=== PATIENT | male | born 1980 | race Caucasian/White ===

== ENCOUNTER 2024-10-14 23:56 | Inpatient (IN) | payer OTHER ==
[~2024-10-14] VITALS: Ht 180.3 cm; Wt 73.5 kg
[2024-10-15] MEDS ORDERED: ASCO500C18 GT (00:36)
[2024-10-15] MEDS ORDERED: MAGN400O6 GT (00:36)
[2024-10-15] MEDS ORDERED: BISA10SU61 RC (00:36)
[2024-10-15] MEDS ORDERED: NA P133E RC (00:36)
[2024-10-15] MEDS ORDERED: ENOX40DI SQ (00:36)
[2024-10-15] MEDS ORDERED: IPRA0.2S48 NEB (00:36)
[2024-10-15] MEDS ORDERED: COLL30OI TOP (00:36)
[2024-10-15] MEDS ORDERED: ACET-3117 GT (00:36)
[2024-10-15] MEDS ORDERED: ZINC220T3 PO (00:36)
[2024-10-15] MEDS ORDERED: METO25TA6 GT (00:36)
[2024-10-15] MEDS ORDERED: DOCU100T2 GT (00:36)
[2024-10-15] MEDS ORDERED: ACET-73 GT (00:36)
[2024-10-15 00:51] LABS: ABG BASE EXCESS 1.5 mmol/L (-2.0-3.0); ABG HCO3 22.2 mmol/L (21.0-28.0); ABG PH 7.566 (7.350-7.450); ABG PO2 67.1 mmHg (83.0-108.0); ABG SITE RIGHT RADIAL; ABG TOTAL HEMOGLOBIN 13.5 G/dL (13.5-17.5); AaDO2 95.9 mmHg; COHb 0.7 % (0.5-1.5); MetHb 0.2 % (0.0-1.5); O2Hb 93.4 % (94.0-98.0); VT, ABG 450 mL
[2024-10-15 01:10] LABS: ALANINE AMINOTRANSFERASE 99 U/L (16-63); ALBUMIN 2.9 g/dL (3.4-5.0); ALKALINE PHOSPHATASE 78 U/L (50-136); ASPARTATE AMINOTRANSFERASE 29 U/L (15-37); BILIRUBIN,DIRECT 0.3 mg/dL (0.0-0.2); BILIRUBIN,TOTAL 0.9 mg/dL (0.2-1.0); CALCIUM 9.3 mg/dL (8.5-10.1); CARBON DIOXIDE 24 mmol/L (21-32); CHLORIDE 96 mmol/L (98-107); CREATININE 0.7 mg/dL (0.6-1.3); GLUCOSE 236 mg/dL (74-106); NT-PRO BNP 156 pg/mL (0-125); SODIUM SERUM 131 mmol/L (136-145); TOTAL PROTEIN, SERUM 10.4 g/dL (6.4-8.2); UREA NITROGEN, BLOOD 20 mg/dL (7-18)
[2024-10-15 01:10] LABS: *BLOOD, URINE 3+ (NEGATIVE); *CLARITY,URINE SLIGHTLY CLOUDY (CLEAR); *COLOR,URINE DARK YELLOW (YELLOW); *KETONES,URINE 1+ (NEGATIVE); *UROBILINOGEN,URINE 0.2 E.U./dl (NORMAL); LEUKOCYTE ESTERASE ,URINE NEGATIVE (NEGATIVE); NITRITE, URINE NEGATIVE (NEGATIVE); PH,URINE 5.5 (5.0-8.0); UGLUCOSE TRACE (NEGATIVE)
[2024-10-15 01:15] LABS: LACTIC ACID 2.5 mmol/L (0.4-2.0)
[2024-10-15 01:16] LABS: *BILIRUBIN,URIN 1+ (NEGATIVE); *PROTEIN,URINE 3+ (NEGATIVE)
[2024-10-15 01:19] LABS: MEAN CORPUSCULAR HEMOGLOBIN 28.4 uug (23.8-33.4); MONOCYTES # (AUTO) 0.6 K/uL (0.1-1.30); NEUTROPHILS # (AUTO) 30.4 K/uL (1.8-8.9)
[2024-10-15 01:21] LABS: BASOPHILS # (AUTO) 0.3 K/UL (0.0-0.2); BASOPHILS % (AUTO) 0.8 % (0.0-2.0); HEMATOCRIT 39.7 % (36.7-47.1); HEMOGLOBIN 13.3 g/dL (12.5-16.3); LYMPHOCYTES # (AUTO) 0.7 K/uL (0.8-4.8); LYMPHOCYTES % (AUTO) 2.2 % (20.5-51.5); MEAN CORPUSCULAR HGB CONC 33 g/dL (32.5-36.3); MEAN CORPUSCULAR VOLUME 84.9 fL (73.0-96.2); MONOCYTES % (AUTO) 1.7 % (0.0-11.0); NEUTROPHILS % (AUTO) 95.3 % (38.5-71.5); PLATELET COUNT (AUTO) 778 K/uL (152-348); RED BLOOD CELL COUNT(AUTO) 4.68 MIL/uL (4.06-5.63); RED CELL DISTRIBUTION WIDTH 17.4 % (12.1-16.2)
[2024-10-15] MEDS ORDERED: VANCOMYCIN IV 200 ML ONE (01:27)
[2024-10-15] MEDS ORDERED: CEFTRIAXONE /D5W 50ML IVPB **ER PYXIS IV ONE (01:27)
[2024-10-15] MEDS ORDERED: CLINDAMYCIN 600 MG PIGGYBACK**ER OMNI IV ONE (01:28)
[2024-10-15] MEDS: IV NORMAL SALINE 1000 ML BAG IV ONE ×2 (01:29→07:43)
[2024-10-15] MEDS: CEFTRIAXONE 1 G in IV DEXTROSE 5% 50 ML IV ONE (01:29)
[2024-10-15 02:02] LABS: BACTERIA,URINE FEW /HPF (NONE SEEN); SQUAMOUS EPITHELIAL CELL,UR FEW /HPF (NONE SEEN); WBC,URINE 0-3 /HPF (0-3)
[2024-10-15 02:03] LABS: CALCIUM OXALATE CRYSTALS,UR MODERATE /HPF (NONE SEEN)
[2024-10-15] MEDS: CLINDAMYCIN PHOSPHATE IV 600 MG in IV DEXTROSE 5% 100 ML IV ONE (02:03)
[2024-10-15 02:10] LABS: DIFFERENTIAL COMMENT 1; WHITE BLOOD COUNT (AUTO) 31.9 K/uL (3.6-10.2)
[2024-10-15] MEDS: VANCOMYCIN IV 1,000 MG in IV DEXTROSE 5% 250 ML IV ONE (02:21)
[2024-10-15 04:08] LABS: BAND % (MANUAL) 2 % (0-10); LYMPHOCYTES % (MANUAL) 5 % (20-40); MONOCYTES % (MANUAL) 2 % (2-10); NEUTROPHILS % (MANUAL) 91 % (42-75)
[2024-10-15] MEDS ORDERED: MAGNESIUM HYDROXIDE 30 ML LIQUID UDC PO PRN (05:00)
[2024-10-15] MEDS: IV NS 1000 ML 1,000 ML IV SCH (05:18)
[2024-10-15] MEDS ORDERED: ENOXAPARIN SODIUM 40 MG/0.4 ML DISP.SYRIN SQ ONE (08:28)
[2024-10-15] MEDS ORDERED: PANTOPRAZOLE SODIUM 40 MG VIAL ONE (08:29)
[2024-10-15] MEDS: METOPROLOL TARTRATE 25 MG TABLET GT SCH (08:40)
[2024-10-15] MEDS: PANTOPRAZOLE SODIUM 40 MG VIAL IV SCH (08:40)
[2024-10-15] MEDS: ENOXAPARIN SODIUM 40 MG/0.4 ML DISP.SYRIN SQ SCH (08:41)
[2024-10-15] MEDS: CEFEPIME HCL 2 GM in IV DEXTROSE 5% 100 ML IV SCH (08:46)
[2024-10-15] MEDS: IV NS 1000 ML 1,000 ML IV PRN (08:58)
[2024-10-15] MEDS ORDERED: ALBUTEROL SULFATE 2.5 MG/ 0.5 ML NEBU ONE (09:58)
[2024-10-15] MEDS: IPRATROPIUM BROMIDE 0.5 MG/2.5 ML NEBU NEB SCH (09:59)
[2024-10-15] MEDS ORDERED: CLINDAMYCIN PHOSPHATE IV 600 MG in IV DEXTROSE 5% 50 ML IV SCH (10:00)
[2024-10-15] MEDS ORDERED: ACET325T53 PO (10:37)
[2024-10-15] MEDS ORDERED: INSU100V SQ (11:01)
[2024-10-15] MEDS ORDERED: GLUC1KIT IM (11:01)
[2024-10-15 11:30] VITALS: BP 143/93; TEMP 98.7; O2SAT 99
[2024-10-15] MEDS ORDERED: INSULIN LISPRO 1000 UNITS/10 ML VIAL(HUMALOG) SQ PRN (11:30)
[2024-10-15] MEDS ORDERED: BISACODYL 10 MG SUPP.RECT RC PRN (11:30)
[2024-10-15] MEDS: DOCUSATE SODIUM 100 MG/10 ML LIQUID UDC GT SCH (12:00)
[2024-10-15] MEDS ORDERED: ENOXAPARIN SODIUM 40 MG/0.4 ML DISP.SYRIN SQ SCH (12:00)
[2024-10-15] MEDS: BLOOD SUGAR DIAGNOSTIC 1 EACH STRIP VI SCH (12:34)
[2024-10-15] MEDS: ZINC SULFATE 220 MG CAPSULE GT SCH (12:36)
[2024-10-15] MEDS: INSULIN REGULAR, HUMAN 1000 UNIT/10 ML VIAL SQ PRN (12:36)
[2024-10-15] MEDS: ASCORBIC ACID 500 MG TABLET GT SCH (12:36)
[2024-10-15] MEDS: MEDIHONEY= THERAHONEY 1.5 OZ TUBE TOP SCH (12:37)
[2024-10-15] MEDS: ONDANSETRON 4 MG/2 ML VIAL IV PRN (12:38)
[2024-10-15] MEDS: REMEDY ESSENTIAL ZINC PASTE 113 GM TP PRN (12:39)
[2024-10-15] MEDS: VANCOMYCIN IV 1,250 MG in IV DEXTROSE 5% 250 ML IV SCH (13:29)
[2024-10-15] MEDS: GLUCERNA 1.2 1000ML LIQUID GT PRN (15:42)
[2024-10-15 16:00] VITALS: BP 143/99; TEMP 99.1; O2SAT 99
[2024-10-15] MEDS: ACETAMINOPHEN 650 MG SUPP.RECT RC PRN (16:28)
[2024-10-15] MEDS: ARGININE/GLUTAMINE/CALCIUM BMB 1 EACH POWD.PACK GT SCH (17:29)
[2024-10-15 19:40] VITALS: BP 138/91; TEMP 98; O2SAT 99
[2024-10-16 00:31] VITALS: BP 134/92; TEMP 99.1; O2SAT 100
[2024-10-16] MEDS ORDERED: CEFTRIAXONE 1 G in IV DEXTROSE 5% 50 ML IV SCH (01:00)
[2024-10-16 04:20] VITALS: BP 129/89; TEMP 98.4; O2SAT 100
[2024-10-16] MEDS: DEXTROSE 50% 50 ML DISP.SYRIN IV PRN (06:07)
[2024-10-16 07:31] LABS: BASOPHILS # (AUTO) 0.1 K/UL (0.0-0.2); BASOPHILS % (AUTO) 0.4 % (0.0-2.0); EOSINOPHILS # (AUTO) 0.1 K/uL (0.0-0.7); EOSINOPHILS % (AUTO) 0.5 % (0.0-7.0); HEMATOCRIT 31.4 % (36.7-47.1); HEMOGLOBIN 10.3 g/dL (12.5-16.3); LYMPHOCYTES % (AUTO) 5.6 % (20.5-51.5); MEAN CORPUSCULAR HEMOGLOBIN 28.8 uug (23.8-33.4); MEAN CORPUSCULAR HGB CONC 33 g/dL (32.5-36.3); MEAN CORPUSCULAR VOLUME 87.7 fL (73.0-96.2); MONOCYTES # (AUTO) 0.8 K/uL (0.1-1.30); MONOCYTES % (AUTO) 4.5 % (0.0-11.0); NEUTROPHILS # (AUTO) 16.6 K/uL (1.8-8.9); PLATELET COUNT (AUTO) 512 K/uL (152-348); RED BLOOD CELL COUNT(AUTO) 3.59 MIL/uL (4.06-5.63); RED CELL DISTRIBUTION WIDTH 16.9 % (12.1-16.2); WHITE BLOOD COUNT (AUTO) 18.6 K/uL (3.6-10.2)
[2024-10-16 07:45] LABS: CALCIUM 8.2 mg/dL (8.5-10.1); CARBON DIOXIDE 23 mmol/L (21-32); CHLORIDE 103 mmol/L (98-107); CREATININE 0.3 mg/dL (0.6-1.3); GLUCOSE 212 mg/dL (74-106); MAGNESIUM 1.7 mg/dL (1.8-2.4); PHOSPHOROUS 1.8 mg/dL (2.5-4.9); POTASSIUM 3.1 mmol/L (3.5-5.1); SODIUM SERUM 134 mmol/L (136-145); UREA NITROGEN, BLOOD 9 mg/dL (7-18)
[2024-10-16] MEDS ORDERED: IPRATROPIUM BROMIDE 0.5 MG/2.5 ML NEBU ONE (07:46)
[2024-10-16 08:15] LABS: DIFFERENTIAL COMMENT 1
[2024-10-16 08:22] LABS: THYROID STIMULATING HORMONE 2.083 mIU/mL (0.358-3.740)
[2024-10-16] MEDS ORDERED: COLLAGENASE OINT 30 GM TUBE TOP SCH (09:00)
[2024-10-16] MEDS ORDERED: MEDIHONEY= THERAHONEY 1.5 OZ TUBE TOP SCH (09:00)
[2024-10-16] MEDS: MAGNESIUM OXIDE 400 MG TABLET GT ONE (10:02)
[2024-10-16] MEDS: POTASSIUM CHLORIDE 20 MEQ POWDER PACKET GT ONE (10:03)
[2024-10-16] MEDS: POTASSIUM PHOSPHATE MM 15 MMOL in IV NORMAL SALINE 250 ML IV ONE (11:32)
[2024-10-16 19:00] VITALS: BP 130/89; TEMP 97.5; O2SAT 100
[2024-10-17] VITALS: BP 136/88; TEMP 97.5; O2SAT 100
[2024-10-17 04:00] VITALS: BP 120/84; TEMP 98; O2SAT 100
[2024-10-17] MEDS: PANTOPRAZOLE ORAL SUSPENSION 40 MG SUSPDR.PKT GT SCH (05:03)
[2024-10-17 06:51] LABS: BASOPHILS # (AUTO) 0.1 K/UL (0.0-0.2); BASOPHILS % (AUTO) 0.4 % (0.0-2.0); EOSINOPHILS # (AUTO) 0.2 K/uL (0.0-0.7); EOSINOPHILS % (AUTO) 1.2 % (0.0-7.0); HEMATOCRIT 28.2 % (36.7-47.1); HEMOGLOBIN 9.4 g/dL (12.5-16.3); LYMPHOCYTES # (AUTO) 1.2 K/uL (0.8-4.8); LYMPHOCYTES % (AUTO) 6.3 % (20.5-51.5); MEAN CORPUSCULAR HEMOGLOBIN 28.5 uug (23.8-33.4); MEAN CORPUSCULAR HGB CONC 33 g/dL (32.5-36.3); MEAN CORPUSCULAR VOLUME 85.7 fL (73.0-96.2); MONOCYTES # (AUTO) 0.9 K/uL (0.1-1.30); MONOCYTES % (AUTO) 5.1 % (0.0-11.0); NEUTROPHILS # (AUTO) 16.1 K/uL (1.8-8.9); PLATELET COUNT (AUTO) 430 K/uL (152-348); RED BLOOD CELL COUNT(AUTO) 3.29 MIL/uL (4.06-5.63); WHITE BLOOD COUNT (AUTO) 18.5 K/uL (3.6-10.2)
[2024-10-17 07:03] LABS: CALCIUM 8.4 mg/dL (8.5-10.1); CARBON DIOXIDE 23 mmol/L (21-32); CHLORIDE 100 mmol/L (98-107); CREATININE 0.3 mg/dL (0.6-1.3); GLUCOSE 134 mg/dL (74-106); MAGNESIUM 1.4 mg/dL (1.8-2.4); PHOSPHOROUS 2.3 mg/dL (2.5-4.9); POTASSIUM 3.5 mmol/L (3.5-5.1); SODIUM SERUM 133 mmol/L (136-145); UREA NITROGEN, BLOOD 11 mg/dL (7-18)
[2024-10-17 07:11] LABS: DIFFERENTIAL COMMENT 1
[2024-10-17 07:59] VITALS: BP 127/85; TEMP 98.9; O2SAT 100
[2024-10-17] MEDS: POTASSIUM PHOSPHATE MM 15 MMOL in IV NORMAL SALINE 250 ML IV ONE (10:15)
[2024-10-17 11:50] VITALS: BP 124/82; TEMP 99.2; O2SAT 98
[2024-10-17] MEDS: MAGNESIUM SULFATE/D5W 100 ML IV SCH (12:25)
[2024-10-17 15:47] VITALS: BP 127/83; TEMP 98.4; O2SAT 98
[2024-10-17 19:30] VITALS: BP 126/82; TEMP 98.8; O2SAT 100
[2024-10-18] VITALS: BP 112/78; TEMP 99.2; O2SAT 99
[2024-10-18 04:00] VITALS: BP 113/77; TEMP 99.6; O2SAT 98
[2024-10-18 06:46] LABS: BASOPHILS # (AUTO) 0.1 K/UL (0.0-0.2); BASOPHILS % (AUTO) 0.5 % (0.0-2.0); EOSINOPHILS # (AUTO) 0.2 K/uL (0.0-0.7); EOSINOPHILS % (AUTO) 1.4 % (0.0-7.0); HEMATOCRIT 25.6 % (36.7-47.1); HEMOGLOBIN 9.1 g/dL (12.5-16.3); LYMPHOCYTES # (AUTO) 1.7 K/uL (0.8-4.8); LYMPHOCYTES % (AUTO) 13.8 % (20.5-51.5); MEAN CORPUSCULAR HEMOGLOBIN 29.9 uug (23.8-33.4); MEAN CORPUSCULAR HGB CONC 35 g/dL (32.5-36.3); MEAN CORPUSCULAR VOLUME 84.4 fL (73.0-96.2); MONOCYTES # (AUTO) 0.7 K/uL (0.1-1.30); NEUTROPHILS # (AUTO) 9.9 K/uL (1.8-8.9); NEUTROPHILS % (AUTO) 78.3 % (38.5-71.5); PLATELET COUNT (AUTO) 558 K/uL (152-348); RED BLOOD CELL COUNT(AUTO) 3.03 MIL/uL (4.06-5.63); RED CELL DISTRIBUTION WIDTH 17.2 % (12.1-16.2); WHITE BLOOD COUNT (AUTO) 12.6 K/uL (3.6-10.2)
[2024-10-18 07:03] LABS: CALCIUM 7.6 mg/dL (8.5-10.1); CARBON DIOXIDE 25 mmol/L (21-32); CHLORIDE 99 mmol/L (98-107); CREATININE 0.3 mg/dL (0.6-1.3); GLUCOSE 103 mg/dL (74-106); MAGNESIUM 1.8 mg/dL (1.8-2.4); PHOSPHOROUS 3.6 mg/dL (2.5-4.9); POTASSIUM 3.8 mmol/L (3.5-5.1); SODIUM SERUM 132 mmol/L (136-145); UREA NITROGEN, BLOOD 12 mg/dL (7-18)
[2024-10-18 07:08] LABS: DIFFERENTIAL COMMENT 1
[2024-10-18 07:47] VITALS: BP 113/74; TEMP 98.5; O2SAT 99
[2024-10-18 12:00] VITALS: BP 120/83; TEMP 98.4; O2SAT 99
[2024-10-18 16:00] VITALS: BP 124/87; TEMP 98.7; O2SAT 98
[2024-10-18 19:50] VITALS: BP 120/79; TEMP 99.8; O2SAT 100
[2024-10-19 00:38] VITALS: BP 117/77; TEMP 98.5; O2SAT 100
[2024-10-19 05:00] VITALS: BP 123/85; TEMP 98.4; O2SAT 100
[2024-10-19 07:30] LABS: BASOPHILS # (AUTO) 0.1 K/UL (0.0-0.2); BASOPHILS % (AUTO) 0.6 % (0.0-2.0); EOSINOPHILS # (AUTO) 0.2 K/uL (0.0-0.7); EOSINOPHILS % (AUTO) 1.5 % (0.0-7.0); HEMATOCRIT 28.3 % (36.7-47.1); HEMOGLOBIN 9.8 g/dL (12.5-16.3); LYMPHOCYTES # (AUTO) 1.4 K/uL (0.8-4.8); LYMPHOCYTES % (AUTO) 12.6 % (20.5-51.5); MEAN CORPUSCULAR HEMOGLOBIN 29.2 uug (23.8-33.4); MEAN CORPUSCULAR HGB CONC 35 g/dL (32.5-36.3); MONOCYTES # (AUTO) 0.7 K/uL (0.1-1.30); MONOCYTES % (AUTO) 6.6 % (0.0-11.0); NEUTROPHILS # (AUTO) 8.6 K/uL (1.8-8.9); NEUTROPHILS % (AUTO) 78.7 % (38.5-71.5); PLATELET COUNT (AUTO) 611 K/uL (152-348); RED BLOOD CELL COUNT(AUTO) 3.37 MIL/uL (4.06-5.63); RED CELL DISTRIBUTION WIDTH 16.8 % (12.1-16.2); WHITE BLOOD COUNT (AUTO) 10.9 K/uL (3.6-10.2)
[2024-10-19 07:41] LABS: CALCIUM 8.3 mg/dL (8.5-10.1); CARBON DIOXIDE 22 mmol/L (21-32); CHLORIDE 96 mmol/L (98-107); CREATININE 0.3 mg/dL (0.6-1.3); GLUCOSE 133 mg/dL (74-106); MAGNESIUM 1.6 mg/dL (1.8-2.4); PHOSPHOROUS 3.3 mg/dL (2.5-4.9); SODIUM SERUM 129 mmol/L (136-145); UREA NITROGEN, BLOOD 8 mg/dL (7-18)
[2024-10-19 07:50] LABS: DIFFERENTIAL COMMENT 1
[2024-10-19 08:00] VITALS: BP 132/86; TEMP 97.6; O2SAT 100
[2024-10-19] MEDS: MAGNESIUM SULFATE/D5W 100 ML IV SCH (11:56)
[2024-10-19 12:00] VITALS: BP 121/85; TEMP 98.5; O2SAT 100
[2024-10-19] MEDS: LIDOCAINE 2%-EPI 1:100,000 20 ML VIAL IJ ONE (12:30)
[2024-10-19 15:42] LABS: THYROID STIMULATING HORMONE 1.76 mIU/mL (0.358-3.740)
[2024-10-19 16:00] VITALS: BP 114/76; TEMP 99.2; O2SAT 100
[2024-10-19] MEDS: ACETAMINOPHEN 650 MG/20.3 ML LIQUID UDC GT PRN (18:04)
[2024-10-19 20:55] VITALS: BP 114/78; TEMP 99.7; O2SAT 98
[2024-10-20 00:09] VITALS: BP 112/75; TEMP 99.3; O2SAT 98
[2024-10-20 04:43] VITALS: BP 113/73; TEMP 99.5; O2SAT 98
[2024-10-20 07:55] VITALS: BP 138/90; TEMP 97.9; O2SAT 99
[2024-10-20 07:56] LABS: CALCIUM 8.8 mg/dL (8.5-10.1); CARBON DIOXIDE 24 mmol/L (21-32); CHLORIDE 95 mmol/L (98-107); CREATININE 0.4 mg/dL (0.6-1.3); GLUCOSE 137 mg/dL (74-106); MAGNESIUM 1.9 mg/dL (1.8-2.4); PHOSPHOROUS 3.1 mg/dL (2.5-4.9); POTASSIUM 4.1 mmol/L (3.5-5.1); SODIUM SERUM 130 mmol/L (136-145); UREA NITROGEN, BLOOD 11 mg/dL (7-18)
[2024-10-20 08:02] LABS: BASOPHILS # (AUTO) 0.1 K/UL (0.0-0.2); BASOPHILS % (AUTO) 0.7 % (0.0-2.0); EOSINOPHILS # (AUTO) 0.1 K/uL (0.0-0.7); EOSINOPHILS % (AUTO) 0.7 % (0.0-7.0); HEMATOCRIT 29.6 % (36.7-47.1); LYMPHOCYTES # (AUTO) 1.7 K/uL (0.8-4.8); LYMPHOCYTES % (AUTO) 12.5 % (20.5-51.5); MEAN CORPUSCULAR HEMOGLOBIN 28.4 uug (23.8-33.4); MEAN CORPUSCULAR HGB CONC 34 g/dL (32.5-36.3); MEAN CORPUSCULAR VOLUME 83.6 fL (73.0-96.2); NEUTROPHILS % (AUTO) 79.1 % (38.5-71.5); PLATELET COUNT (AUTO) 631 K/uL (152-348); RED BLOOD CELL COUNT(AUTO) 3.54 MIL/uL (4.06-5.63); RED CELL DISTRIBUTION WIDTH 16.6 % (12.1-16.2); WHITE BLOOD COUNT (AUTO) 13.9 K/uL (3.6-10.2)
[2024-10-20 08:13] LABS: DIFFERENTIAL COMMENT 1
[2024-10-20 11:24] LABS: BAND % (MANUAL) 5 % (0-10); LYMPHOCYTES % (MANUAL) 10 % (20-40); NEUTROPHILS % (MANUAL) 69 % (42-75)
[2024-10-20 11:25] LABS: ANISOCYTOSIS 1+; MONOCYTES % (MANUAL) 15 % (2-10); MYELOCYTES % 1 % (0-0); PLATELET ESTIMATE INCREASED
[2024-10-20 11:58] VITALS: BP 117/71; TEMP 97.9; O2SAT 99
[2024-10-20 15:58] VITALS: BP 111/71; TEMP 98.2; O2SAT 97
[2024-10-20 19:58] VITALS: BP 114/76; TEMP 99.7; O2SAT 98
[2024-10-21 01:22] VITALS: BP 128/88; TEMP 100; O2SAT 98
[2024-10-21 05:27] VITALS: BP 116/79; TEMP 99.3; O2SAT 97
[2024-10-21 07:27] LABS: BASOPHILS # (AUTO) 0.1 K/UL (0.0-0.2); BASOPHILS % (AUTO) 0.8 % (0.0-2.0); EOSINOPHILS # (AUTO) 0.2 K/uL (0.0-0.7); EOSINOPHILS % (AUTO) 1.6 % (0.0-7.0); HEMATOCRIT 30.7 % (36.7-47.1); HEMOGLOBIN 10.4 g/dL (12.5-16.3); LYMPHOCYTES # (AUTO) 2.2 K/uL (0.8-4.8); LYMPHOCYTES % (AUTO) 15.6 % (20.5-51.5); MEAN CORPUSCULAR HEMOGLOBIN 28.4 uug (23.8-33.4); MEAN CORPUSCULAR HGB CONC 34 g/dL (32.5-36.3); MEAN CORPUSCULAR VOLUME 83.9 fL (73.0-96.2); MONOCYTES # (AUTO) 1.3 K/uL (0.1-1.30); MONOCYTES % (AUTO) 9.4 % (0.0-11.0); NEUTROPHILS % (AUTO) 72.6 % (38.5-71.5); PLATELET COUNT (AUTO) 653 K/uL (152-348); RED BLOOD CELL COUNT(AUTO) 3.66 MIL/uL (4.06-5.63); RED CELL DISTRIBUTION WIDTH 16.7 % (12.1-16.2); WHITE BLOOD COUNT (AUTO) 13.8 K/uL (3.6-10.2)
[2024-10-21 07:33] VITALS: BP 126/85; TEMP 100.8; O2SAT 96
[2024-10-21 07:42] LABS: CALCIUM 8.6 mg/dL (8.5-10.1); CARBON DIOXIDE 21 mmol/L (21-32); CHLORIDE 95 mmol/L (98-107); CREATININE 0.3 mg/dL (0.6-1.3); GLUCOSE 142 mg/dL (74-106); MAGNESIUM 1.9 mg/dL (1.8-2.4); SODIUM SERUM 128 mmol/L (136-145); UREA NITROGEN, BLOOD 13 mg/dL (7-18)
[2024-10-21 07:44] LABS: DIFFERENTIAL COMMENT 1
[2024-10-21 07:47] LABS: POTASSIUM 4.1 mmol/L (3.5-5.1)
[2024-10-21 11:36] VITALS: BP 129/84; TEMP 99.6; O2SAT 98
[2024-10-21 16:00] VITALS: BP 121/81; TEMP 98.9; O2SAT 97
[2024-10-21 19:00] VITALS: BP 123/88; TEMP 98.6; O2SAT 98
[2024-10-22] VITALS: BP 118/85; TEMP 98; O2SAT 98
[2024-10-22 04:00] VITALS: BP 130/79; TEMP 98.4; O2SAT 99
[2024-10-22 07:35] VITALS: BP 127/91; TEMP 98.5; O2SAT 100
[2024-10-22 07:54] LABS: CALCIUM 8.7 mg/dL (8.5-10.1); CARBON DIOXIDE 23 mmol/L (21-32); CHLORIDE 98 mmol/L (98-107); CREATININE 0.3 mg/dL (0.6-1.3); GLUCOSE 137 mg/dL (74-106); MAGNESIUM 1.9 mg/dL (1.8-2.4); PHOSPHOROUS 3.3 mg/dL (2.5-4.9); POTASSIUM 3.9 mmol/L (3.5-5.1); SODIUM SERUM 131 mmol/L (136-145); UREA NITROGEN, BLOOD 16 mg/dL (7-18); URIC ACID 2.4 mg/dL (3.5-7.2)
[2024-10-22 10:20] LABS: THYROID STIMULATING HORMONE 2.978 mIU/mL (0.358-3.740)
[2024-10-22 11:36] VITALS: BP 111/76; TEMP 98.2; O2SAT 98
[2024-10-22 15:53] VITALS: BP 111/79; TEMP 99.3; O2SAT 99
[2024-10-23 07:30] LABS: BASOPHILS # (AUTO) 0.1 K/UL (0.0-0.2); BASOPHILS % (AUTO) 0.9 % (0.0-2.0); EOSINOPHILS # (AUTO) 0.2 K/uL (0.0-0.7); EOSINOPHILS % (AUTO) 1.2 % (0.0-7.0); HEMATOCRIT 27.5 % (36.7-47.1); HEMOGLOBIN 9.3 g/dL (12.5-16.3); LYMPHOCYTES # (AUTO) 2.4 K/uL (0.8-4.8); LYMPHOCYTES % (AUTO) 16.5 % (20.5-51.5); MEAN CORPUSCULAR HEMOGLOBIN 28.7 uug (23.8-33.4); MEAN CORPUSCULAR HGB CONC 34 g/dL (32.5-36.3); MEAN CORPUSCULAR VOLUME 84.9 fL (73.0-96.2); MONOCYTES % (AUTO) 6.9 % (0.0-11.0); NEUTROPHILS % (AUTO) 74.5 % (38.5-71.5); PLATELET COUNT (AUTO) 625 K/uL (152-348); RED BLOOD CELL COUNT(AUTO) 3.24 MIL/uL (4.06-5.63); RED CELL DISTRIBUTION WIDTH 16.8 % (12.1-16.2); WHITE BLOOD COUNT (AUTO) 14.7 K/uL (3.6-10.2)
[2024-10-23 07:47] LABS: CALCIUM 8.8 mg/dL (8.5-10.1); CARBON DIOXIDE 21 mmol/L (21-32); CHLORIDE 100 mmol/L (98-107); CREATININE 0.4 mg/dL (0.6-1.3); GLUCOSE 138 mg/dL (74-106); PHOSPHOROUS 3.7 mg/dL (2.5-4.9); POTASSIUM 4.3 mmol/L (3.5-5.1); SODIUM SERUM 133 mmol/L (136-145); UREA NITROGEN, BLOOD 14 mg/dL (7-18)
[2024-10-23 07:49] LABS: DIFFERENTIAL COMMENT 1
[2024-10-23 08:00] VITALS: BP 129/62; TEMP 98.7; O2SAT 99
[2024-10-23 08:24] LABS: C-REACTIVE PROTEIN 1.23 mg/dL (0.00-0.30)
[2024-10-23 09:41] LABS: ALANINE AMINOTRANSFERASE 65 U/L (16-63); ALBUMIN 2.5 g/dL (3.4-5.0); ALKALINE PHOSPHATASE 71 U/L (50-136); ASPARTATE AMINOTRANSFERASE 30 U/L (15-37); BILIRUBIN,TOTAL 0.4 mg/dL (0.2-1.0); CALCIUM 8.8 mg/dL (8.5-10.1); CARBON DIOXIDE 19 mmol/L (21-32); CHLORIDE 99 mmol/L (98-107); CREATININE 0.4 mg/dL (0.6-1.3); GLUCOSE 132 mg/dL (74-106); POTASSIUM 4.6 mmol/L (3.5-5.1); SODIUM SERUM 134 mmol/L (136-145); TOTAL PROTEIN, SERUM 8.3 g/dL (6.4-8.2); UREA NITROGEN, BLOOD 14 mg/dL (7-18)
[2024-10-23 11:27] LABS: BAND % (MANUAL) 5 % (0-10); EOSINOPHILS % (MANUAL) 1 % (0-8); LYMPHOCYTES % (MANUAL) 18 % (20-40); MONOCYTES % (MANUAL) 7 % (2-10); NEUTROPHILS % (MANUAL) 69 % (42-75)
[2024-10-23 11:28] LABS: ANISOCYTOSIS 1+; PLATELET ESTIMATE INCREASED
[2024-10-23 11:59] VITALS: BP 107/70; TEMP 97.2; O2SAT 99
[2024-10-23 19:45] VITALS: BP 111/76; TEMP 98.7; O2SAT 98
[2024-10-24 00:08] VITALS: BP 123/81; TEMP 99.1; O2SAT 100
[2024-10-24] MEDS ORDERED: IPRATROPIUM BROMIDE 0.5 MG/2.5 ML NEBU ONE (00:48)
[2024-10-24 06:59] VITALS: BP 113/75; TEMP 99.4; O2SAT 100
[2024-10-24 07:22] LABS: ALANINE AMINOTRANSFERASE 58 U/L (16-63); ALBUMIN 2.5 g/dL (3.4-5.0); ALKALINE PHOSPHATASE 70 U/L (50-136); ASPARTATE AMINOTRANSFERASE 19 U/L (15-37); BILIRUBIN,TOTAL 0.4 mg/dL (0.2-1.0); CALCIUM 8.6 mg/dL (8.5-10.1); CARBON DIOXIDE 23 mmol/L (21-32); CHLORIDE 100 mmol/L (98-107); CREATININE 0.3 mg/dL (0.6-1.3); GLUCOSE 138 mg/dL (74-106); SODIUM SERUM 135 mmol/L (136-145); UREA NITROGEN, BLOOD 12 mg/dL (7-18)
[2024-10-24 09:49] VITALS: BP 118/87; TEMP 98.1; O2SAT 99
[2024-10-24] MEDS: CEFEPIME HCL 2 GM in IV DEXTROSE 5% 100 ML IV SCH (10:52)
[2024-10-24] MEDS ORDERED: LEVO750T46 PO (11:03)
[2024-10-24] MEDS ORDERED: Glucerna 1.2 GT (11:03)
[2024-10-24] MEDS ORDERED: CEFEPIME HCL 2 GM in IV DEXTROSE 5% 100 ML IV SCH (14:00)
[2024-10-24 15:29] VITALS: BP 119/84; TEMP 98.3; O2SAT 100
[2024-10-24 18:40] VITALS: BP 113/78; TEMP 97.4; O2SAT 100
== END 2024-10-24 20:05 | DRG 720 ==
LOC: ER 10-15 00:04 → TRANSITION 10-15 07:26 → TELE-TD3 10-15 10:46 → TELE3 10-16 13:16
PROVIDERS: ATTEND Nurse Practitioner Acute Care
PROC: 5A1955Z Respiratory Ventilation, Greater than 96 Consecutive Hours (ICD-10-PCS; principal; 2024-10-15)
DX: A41.9 Sepsis, unspecified organism (principal); J96.21 Acute and chronic respiratory failure with hypoxia; G93.41 Metabolic encephalopathy; J15.9 Unspecified bacterial pneumonia; E44.0 Moderate protein-calorie malnutrition; L89.310 Pressure ulcer of right buttock, unstageable; L89.153 Pressure ulcer of sacral region, stage 3; L89.320 Pressure ulcer of left buttock, unstageable; D68.59 Other primary thrombophilia; E87.1 Hypo-osmolality and hyponatremia; R53.2 Functional quadriplegia; E88.09 Other disorders of plasma-protein metabolism, not elsewhere classified; Z93.0 Tracheostomy status; J96.11 Chronic respiratory failure with hypoxia; Z93.1 Gastrostomy status; Z68.22 Body mass index [BMI] 22.0-22.9, adult; Z86.14 Personal history of Methicillin resistant Staphylococcus aureus infection; G40.909 Epilepsy, unspecified, not intractable, without status epilepticus; Z91.89 Other specified personal risk factors, not elsewhere classified; R13.10 Dysphagia, unspecified; Z86.73 Personal history of transient ischemic attack (TIA), and cerebral infarction without residual deficits; Z99.11 Dependence on respirator [ventilator] status; Z87.01 Personal history of pneumonia (recurrent); J84.10 Pulmonary fibrosis, unspecified
CPT/HCPCS: 36415; 36600; 70030-TC; 70360; 71045; 82533; 83605; 83735; 83921; 84100; 84443; 84484; 84550; 85025; 85730; 86140; 87040; 93307; 94002; 94003; 94640; 94760; 99082-TC; A4606; A4663; A6209; A6213; G0378; J0692; J0696; J1650; J1815; J2405; J2470; J3370; J3475; J3490; J3590; J7040; J7050